=== PATIENT | female | born 1950 | race African-American/Black ===

== ENCOUNTER 2019-09-26 10:58 | Observation (INO) ==
[2019-09-26] MEDS ORDERED: ONDANSETRON 4 MG/2 ML VIAL IV STA (12:04)
[2019-09-26] MEDS ORDERED: AZITHROMYCIN INJ 500 MG in SODIUM CHLORIDE 0.9% 250 ML IV STA (12:16)
[2019-09-26] MEDS ORDERED: methylPREDNISolone SOD SUC 125 MG/2 ML VIAL IV STA (12:16)
[2019-09-26 12:37] LABS: Basophils % 0.1 % (0.0-0.8); Eosinophils % 0.4 % (0.00-10.9); Hematocrit 40.7 VOL% (35.7-47.0); Hemoglobin 12.9 GM/DL (12.0-16.0); Immature Granulocytes % 0.2 %; Immature Granulocytes Absolute 0.02 #; Lymphocytes # 1.8 10*3/uL (1.4-4.0); Lymphocytes % 19.3 % (21.3-54.2); Mean Corpuscular HGB Conc 31.7 GM/DL (32-36); Mean Corpuscular Volume 98.3 FL (87-102); Mean Platelet Volume 9.7 FL (9.6-12.0); Monocytes % 12.7 % (1.7-12.7); Neutrophils % 67.3 % (38.7-73.9); Platelet Count 240 T/CUMM (130-400); Red Blood Count 4.14 MC/CUMM (3.8-5.5); Red Cell Distribution Width 15.9 % (9.3-17.3); White Blood Count 9.1 T/CUMM (4-12)
[2019-09-26 12:47] LABS: Apearance,Urine Slightly Hazy (Clear); Bacteria,Urine Occasional /HPF (Few); Blood, Urine Negative (Negative); Glucose,Urine (UA) Negative (Negative); Hyaline Casts,Urine 39 /LPF (0-3); Ketones,Urine Negative (Negative); Mucus,Urine Occasional /LPF (Occasional); Nitrite,Urine Negative (Negative); Protein,Urine Negative; RBC,Urine 3 /HPF (0-4); Squamous Epithelial Cell,Urine Moderate /HPF (0-10); Urine Color Amber (Yellow); Urine Specific Gravity 1.028 (1.001-1.035); Urine Urobilinogen < 2.0 EU/DL (0.2-1.0); WBC,Urine 1 /HPF (0-6)
[2019-09-26 12:51] LABS: Bilirubin,Urine Small mg/dL (Negative)
[2019-09-26 13:12] LABS: Alanine Aminotransferase 14 U/L (13-56); Albumin 3.3 G/DL (3.4-5.0); Alkaline Phosphatase 143 U/L (45-117); Amylase 45 U/L (25-115); Aspartate Amino Transferase 17 U/L (0-37); Bilirubin,Total < 0.39 MG/DL (0.2-1.0); Blood Urea Nitrogen 14 MG/DL (7-18); Calcium 8.6 MG/DL (8.5-10.1); Estimated Glom Filtration Rate 78 ML/MIN; Ferritin 20.7 ng/ml (8-252); Glucose 108 MG/DL (74-106); Osmolality,Calculated 265.5 MOS/KG (273-304)
[2019-09-26] MEDS: TERBUTALINE 1 MG/1 ML VIAL SUBCUT SCH ×2 (14:15→17:22)
[2019-09-26] MEDS ORDERED: ALBUTEROL NEB SOLN 5 MG/ML 20 ML/BOTTLE CONT NEB STA (14:25)
[2019-09-26 15:11] LABS: ABG Base Excess 4.5 MMOL/L (-2.5-2.5); ABG HCO3 28.4 MMOL/L (20-26); ABG Oxygen Saturation 98.4 % (95-100); ABG PCO2 62.8 MM HG (35-48); ABG PH 7.323 (7.35-7.45); ABG TCO2 29.1 MMOL/L (23-27); Allen Test Positive
[2019-09-26] MEDS ORDERED: LEVOFLOXACIN INJ 750 MG in PREMIX 1 EACH IV STA (15:22)
[2019-09-26] MEDS ORDERED: FUROSEMIDE 40 MG/4 ML VIAL IV STA (15:22)
[2019-09-26 15:52] LABS: Troponin I < 0.015 NG/ML (0.00-0.045)
[2019-09-26] MEDS ORDERED: GLUCAGON 1 MG VIAL IM PRN ×2 (15:57)
[2019-09-26] MEDS ORDERED: DEXTROSE 50% 25 GM/50 ML VIAL IV PRN ×2 (15:57)
[2019-09-26] MEDS ORDERED: ONDANSETRON 4 MG/2 ML VIAL IV PRN (15:57)
[2019-09-26] MEDS ORDERED: ENOXAPARIN 40 MG/0.4 ML SYRINGE SUBCUT SCH (16:00)
[2019-09-26] MEDS ORDERED: NITROGLYCERIN SL 0.4 MG TABLET SL PRN (16:08)
[2019-09-26] MEDS ORDERED: ONDANSETRON 4 MG TABLET PO PRN (16:08)
[2019-09-26] MEDS ORDERED: COLCHICINE 0.6 MG CAPSULE PO PRN (16:08)
[2019-09-26] MEDS ORDERED: ENOXAPARIN 40 MG/0.4 ML SYRINGE ONE (17:19)
[2019-09-26] MEDS: INSULIN LISPRO 100 UNIT/ML SUBCUT SCH ×2 (18:54→21:25)
[2019-09-26] MEDS: THEOPHYLLINE ER 300 MG TABLET PO SCH (18:54)
[2019-09-26] MEDS: ALBUTEROL/IPRATROPIUM 3 ML NEB RESP TX SCH (19:58)
[2019-09-26] MEDS: BUDESONIDE 0.5 MG/2 ML NEB RESP TX SCH (19:58)
[2019-09-26] MEDS ORDERED: SIMVASTATIN 10 MG TABLET PO SCH (21:00)
[2019-09-26] MEDS: LABETALOL 200 MG TABLET PO SCH (21:21)
[2019-09-26] MEDS: BUDESONIDE/FORMOTEROL 80-4.5 INHALER 6.9 GM INH SCH (21:21)
[2019-09-27] MEDS: ALBUTEROL/IPRATROPIUM 3 ML NEB RESP TX SCH ×2 (00:56→07:20)
[2019-09-27 04:06] LABS: ABG Base Excess 6.4 MMOL/L (-2.5-2.5); ABG HCO3 30.2 MMOL/L (20-26); ABG PCO2 55.1 MM HG (35-48); ABG PH 7.386 (7.35-7.45); ABG PO2 86.1 MM HG (80-95); ABG TCO2 29.4 MMOL/L (23-27); Allen Test Positive
[2019-09-27] MEDS: THEOPHYLLINE ER 300 MG TABLET PO SCH (04:53)
[2019-09-27 06:07] LABS: Basophils % 0.1 % (0.0-0.8); Eosinophils % 0.2 % (0.00-10.9); Hematocrit 38.4 VOL% (35.7-47.0); Hemoglobin 12.5 GM/DL (12.0-16.0); Immature Granulocytes % 0.3 %; Immature Granulocytes Absolute 0.03 #; Lymphocytes # 2.7 10*3/uL (1.4-4.0); Lymphocytes % 28.9 % (21.3-54.2); Mean Corpuscular HGB Conc 32.6 GM/DL (32-36); Mean Corpuscular Volume 96.7 FL (87-102); Monocytes % 11.2 % (1.7-12.7); Neutrophils % 59.3 % (38.7-73.9); Platelet Count 219 T/CUMM (130-400); Red Blood Count 3.97 MC/CUMM (3.8-5.5); Red Cell Distribution Width 15.7 % (9.3-17.3); White Blood Count 9.2 T/CUMM (4-12)
[2019-09-27 06:28] LABS: Calcium 8.5 MG/DL (8.5-10.1); Osmolality,Calculated 263.5 MOS/KG (273-304)
[2019-09-27] MEDS: BUDESONIDE 0.5 MG/2 ML NEB RESP TX SCH (07:20)
[2019-09-27 07:49] VITALS: BP 124/74
[2019-09-27] MEDS ORDERED: FUROSEMIDE 40 MG/4 ML VIAL IV SCH (08:00)
[2019-09-27] MEDS ORDERED: PANTOPRAZOLE 40 MG TABLET PO SCH (09:00)
[2019-09-27] MEDS ORDERED: POTASSIUM CHLORIDE 20 MEQ TABLET PO SCH (09:00)
[2019-09-27] MEDS ORDERED: NF- (Umeclidinium [Incruse Ellipta] 1 inh) INH SCH (09:00)
[2019-09-27] MEDS ORDERED: DIGOXIN 0.125 MG TABLET PO SCH (09:00)
[2019-09-27] MEDS ORDERED: APIXABAN 5 MG TABLET PO SCH (09:00)
[2019-09-27] MEDS ORDERED: LEVOTHYROXINE 50 MCG TABLET PO SCH (09:00)
[2019-09-27] MEDS: INSULIN LISPRO 100 UNIT/ML SUBCUT SCH (09:31)
[2019-09-27] MEDS: LABETALOL 200 MG TABLET PO SCH (09:32)
[2019-09-27] MEDS: BUDESONIDE/FORMOTEROL 80-4.5 INHALER 6.9 GM INH SCH (09:32)
== END 2019-09-27 11:44 | disposition home health service (06) ==
LOC: N.ED 10:58 → N.EDINP 10:58 → N.4E 16:55
PROVIDERS: ADMIT Internal Medicine Geriatric Medicine; ATTEND Internal Medicine Geriatric Medicine

== ENCOUNTER 2022-04-17 02:55 | Inpatient (IN) ==
[2022-04-17] MEDS ORDERED: ASPIRIN 325 MG TABLET PO STA (03:43)
[2022-04-17] MEDS ORDERED: ONDANSETRON 4 MG/2 ML VIAL IV STA (03:43)
[2022-04-17] MEDS ORDERED: NITROGLYCERIN 2% OINT 1 INCH/GM PACK TOP STA (03:43)
[2022-04-17] MEDS ORDERED: FUROSEMIDE 100 MG/10 ML VIAL IV STA (03:43)
[2022-04-17] MEDS ORDERED: MORPHINE 2 MG/1 ML SYRINGE IV STA (03:43)
[2022-04-17] MEDS ORDERED: methylPREDNISolone SOD SUC 125 MG/2 ML VIAL IV STA (03:43)
[2022-04-17] MEDS ORDERED: ALBUTEROL NEB SOLN 5 MG/ML 20 ML/BOTTLE CONT NEB SCH (04:00)
[2022-04-17 04:13] LABS: Eosinophils # 0.1 10*3/uL (0.0-0.87); Eosinophils % 1.5 % (0.00-10.9); Hematocrit 41.4 VOL% (35.7-47.0); Hemoglobin 13.2 GM/DL (12.0-16.0); Immature Granulocytes % 0.2 %; Immature Granulocytes Absolute 0.01 #; Lymphocytes # 2.3 10*3/uL (1.4-4.0); Lymphocytes % 49.9 % (21.3-54.2); Mean Corpuscular HGB Conc 31.9 GM/DL (32-36); Mean Corpuscular Volume 99.5 FL (87-102); Mean Platelet Volume 10.2 FL (9.6-12.0); Monocytes # 0.6 10*3/uL (0.11-0.8); Monocytes % 12.8 % (1.7-12.7); Neutrophils % 35.6 % (38.7-73.9); Platelet Count 106 T/CUMM (130-400); Red Blood Count 4.16 MC/CUMM (3.8-5.5); Red Cell Distribution Width 15.1 % (9.3-17.3); White Blood Count 4.7 T/CUMM (4-12)
[2022-04-17 04:28] LABS: Alanine Aminotransferase 16 U/L (13-56); Albumin 3.2 G/DL (3.4-5.0); Alkaline Phosphatase 120 U/L (45-117); Aspartate Amino Transferase 18 U/L (0-37); Bilirubin,Total < 0.39 MG/DL (0.20-1.00); Blood Urea Nitrogen 7 MG/DL (7-18); Calcium 8.6 MG/DL (8.5-10.1); Carbon Dioxide 29 MMOL/L (21-32); Chloride 108 MMOL/L (98-107); Glucose 96 MG/DL (74-106); Osmolality,Calculated 278.3 MOS/KG (273-304); Potassium 4.3 MMOL/L (3.5-5.1); Sodium 141 MMOL/L (136-145); Total Protein 7.1 G/DL (6.4-8.2)
[2022-04-17 04:32] LABS: Lymphocytes 50 % (20-55); Total Cells Counted 100
[2022-04-17] MEDS ORDERED: ALBUTEROL 2.5 MG/3 ML NEB RESP TX ONE (04:51)
[2022-04-17] MEDS ORDERED: ONDANSETRON 4 MG/2 ML VIAL IV PRN (05:08)
[2022-04-17] MEDS ORDERED: ACETAMINOPHEN 325 MG TABLET PO PRN (05:08)
[2022-04-17] MEDS ORDERED: MORPHINE 2 MG/1 ML SYRINGE IV PRN (05:08)
[2022-04-17] MEDS ORDERED: METHOCARBAMOL 750 MG TABLET PO PRN (05:13)
[2022-04-17] MEDS ORDERED: NAPROXEN 500 MG TABLET PO PRN (05:13)
[2022-04-17] MEDS ORDERED: DEXTROSE 10% 250 ML BAG IV PRN (05:15)
[2022-04-17] MEDS ORDERED: oxyCODONE IR 5 MG TABLET PO PRN (05:37)
[2022-04-17] MEDS: LEVOTHYROXINE 75 MCG TABLET PO SCH (06:17)
[2022-04-17] MEDS: INSULIN REGULAR 100 UNIT/ML SUBCUT SCH ×4 (07:25→21:07)
[2022-04-17] MEDS: ALBUTEROL/IPRATROPIUM 3 ML NEB RESP TX SCH ×4 (08:27→19:50)
[2022-04-17] MEDS ORDERED: amLODIPine 5 MG TABLET PO SCH (09:00)
[2022-04-17] MEDS: FUROSEMIDE 40 MG TABLET PO SCH (09:32)
[2022-04-17] MEDS: FOLIC ACID 1 MG TABLET PO SCH (09:32)
[2022-04-17] MEDS: GABAPENTIN 100 MG CAPSULE PO SCH ×2 (09:33→21:08)
[2022-04-17] MEDS: APIXABAN 2.5 MG TABLET PO SCH ×2 (09:34→21:07)
[2022-04-17] MEDS: DIGOXIN 0.125 MG TABLET PO SCH (09:34)
[2022-04-17] MEDS: POTASSIUM CHLORIDE 20 MEQ TABLET PO SCH ×2 (09:34→21:08)
[2022-04-17] MEDS: lisinopriL 20 MG TABLET PO SCH (09:35)
[2022-04-17] MEDS: LABETALOL 100 MG TABLET PO SCH ×2 (09:35→21:08)
[2022-04-17] MEDS: predniSONE 20 MG TABLET PO SCH (09:35)
[2022-04-17] MEDS: PANTOPRAZOLE 40 MG TABLET PO SCH (09:35)
[2022-04-17] MEDS: levETIRAcetam 500 MG TABLET PO SCH ×2 (09:36→21:08)
[2022-04-17 10:17] LABS: Risk Ratio 2.28; VLDL Cholesterol 18.8 MG/DL
[2022-04-17] MEDS ORDERED: POTASSIUM CHLORIDE RIDER 10 MEQ/100 ML PREMIX IV PRN (12:05)
[2022-04-17] MEDS ORDERED: MAGNESIUM SULF RIDER 2 GM/50 ML PREMIX IV PRN (12:05)
[2022-04-17] MEDS: PHENYTOIN ER 100 MG CAPSULE PO SCH ×3 (14:27→21:07)
[2022-04-17] MEDS: MORPHINE ER 30 MG TABLET PO SCH ×2 (14:27→21:08)
[2022-04-17] MEDS: ISOSORBIDE MONONITRATE 30 MG TABLET PO SCH (14:28)
[2022-04-17] MEDS: PHENobarbital 30 MG TABLET PO SCH ×3 (14:31→21:08)
[2022-04-17] MEDS ORDERED: SIMVASTATIN 10 MG TABLET PO SCH (21:00)
[2022-04-17] MEDS: AMITRIPTYLINE 75 MG TABLET PO SCH (21:07)
[2022-04-17] MEDS: SIMVASTATIN 20 MG TABLET PO SCH (21:08)
[2022-04-17] MEDS ORDERED: LORazepam 2 MG/1 ML VIAL ONE (21:34)
[2022-04-17] MEDS ORDERED: LORazepam 2 MG/1 ML VIAL IV STA (21:45)
[2022-04-18] MEDS: ALBUTEROL/IPRATROPIUM 3 ML NEB RESP TX SCH ×6 (00:30→20:20)
[2022-04-18 05:52] LABS: Calcium 8.5 MG/DL (8.5-10.1); Osmolality,Calculated 272.8 MOS/KG (273-304); Potassium 4.4 MMOL/L (3.5-5.1)
[2022-04-18 06:20] LABS: Basophils % 0.2 % (0.0-0.8); Eosinophils % 0.5 % (0.00-10.9); Hematocrit 36.9 VOL% (35.7-47.0); Hemoglobin 11.7 GM/DL (12.0-16.0); Immature Granulocytes % 0.3 %; Immature Granulocytes Absolute 0.02 #; Lymphocytes # 2.6 10*3/uL (1.4-4.0); Lymphocytes % 41.9 % (21.3-54.2); Mean Corpuscular HGB Conc 31.7 GM/DL (32-36); Mean Corpuscular Volume 99.7 FL (87-102); Mean Platelet Volume 9.8 FL (9.6-12.0); Monocytes # 1.1 10*3/uL (0.11-0.8); Monocytes % 16.8 % (1.7-12.7); Neutrophils % 40.3 % (38.7-73.9); Platelet Count 176 T/CUMM (130-400); Red Cell Distribution Width 14.9 % (9.3-17.3); White Blood Count 6.3 T/CUMM (4-12)
[2022-04-18] MEDS: LEVOTHYROXINE 75 MCG TABLET PO SCH (06:25)
[2022-04-18 06:42] LABS: Eosinophils 1 % (0-10); Hypochromia Slight; Lymphocytes 45 % (20-55); Total Cells Counted 100
[2022-04-18 06:43] LABS: Microcytosis Slight
[2022-04-18] MEDS: POTASSIUM CHLORIDE 20 MEQ TABLET PO SCH ×2 (10:41→21:00)
[2022-04-18] MEDS: FOLIC ACID 1 MG TABLET PO SCH (10:41)
[2022-04-18] MEDS: MORPHINE ER 30 MG TABLET PO SCH ×2 (10:42→21:01)
[2022-04-18] MEDS: predniSONE 20 MG TABLET PO SCH (10:42)
[2022-04-18] MEDS: INSULIN REGULAR 100 UNIT/ML SUBCUT SCH ×3 (10:44→17:49)
[2022-04-18] MEDS: ISOSORBIDE MONONITRATE 30 MG TABLET PO SCH (11:03)
[2022-04-18] MEDS: GABAPENTIN 100 MG CAPSULE PO SCH ×2 (11:03→21:01)
[2022-04-18] MEDS: PANTOPRAZOLE 40 MG TABLET PO SCH (11:03)
[2022-04-18] MEDS: PHENobarbital 30 MG TABLET PO SCH ×4 (11:04→21:01)
[2022-04-18] MEDS: FUROSEMIDE 40 MG TABLET PO SCH (11:04)
[2022-04-18] MEDS: levETIRAcetam 500 MG TABLET PO SCH ×2 (11:04→21:00)
[2022-04-18] MEDS: ASPIRIN EC 81 MG TABLET PO SCH (11:05)
[2022-04-18] MEDS: PHENYTOIN ER 100 MG CAPSULE PO SCH ×4 (11:05→21:00)
[2022-04-18] MEDS: lisinopriL 20 MG TABLET PO SCH (11:05)
[2022-04-18] MEDS: DIGOXIN 0.125 MG TABLET PO SCH (11:05)
[2022-04-18] MEDS ORDERED: DIAZEPAM 5 MG TABLET PO ONE ×2 (12:05)
[2022-04-18] MEDS ORDERED: diphenhydrAMINE CAP 50 MG CAPSULE PO ONE (12:05)
[2022-04-18] MEDS ORDERED: diphenhydrAMINE CAP 25 MG CAPSULE PO ONE (12:05)
[2022-04-18] MEDS ORDERED: diphenhydrAMINE 50 MG/1 ML VIAL ONE (12:26)
[2022-04-18] MEDS ORDERED: methylPREDNISolone SOD SUC 125 MG/2 ML VIAL ONE (12:26)
[2022-04-18] MEDS ORDERED: fentaNYL 100 MCG/2 ML VIAL ONE (12:36)
[2022-04-18] MEDS ORDERED: MIDAZOLAM 2 MG/2 ML VIAL ONE (12:36)
[2022-04-18] MEDS ORDERED: DEXTROSE 50% 25 GM/50 ML VIAL IV PRN (13:07)
[2022-04-18] MEDS ORDERED: GLUCAGON 1 MG VIAL IM PRN (13:07)
[2022-04-18] MEDS ORDERED: SODIUM CHLORIDE 0.9% 1,000 ML IV SCH (13:30)
[2022-04-18] MEDS: LABETALOL 100 MG TABLET PO SCH ×2 (15:47→21:01)
[2022-04-18] MEDS: AMITRIPTYLINE 75 MG TABLET PO SCH (21:00)
[2022-04-18] MEDS: SIMVASTATIN 20 MG TABLET PO SCH (21:02)
[2022-04-19] MEDS: ALBUTEROL/IPRATROPIUM 3 ML NEB RESP TX SCH ×7 (00:21→22:15)
[2022-04-19] MEDS: INSULIN REGULAR 100 UNIT/ML SUBCUT SCH ×5 (00:42→21:02)
[2022-04-19] MEDS: LEVOTHYROXINE 75 MCG TABLET PO SCH (05:36)
[2022-04-19 05:48] LABS: Eosinophils % 0.2 % (0.00-10.9); Hematocrit 40.1 VOL% (35.7-47.0); Hemoglobin 12.7 GM/DL (12.0-16.0); Immature Granulocytes % 0.3 %; Immature Granulocytes Absolute 0.02 #; Lymphocytes # 2.4 10*3/uL (1.4-4.0); Lymphocytes % 37.7 % (21.3-54.2); Mean Corpuscular HGB Conc 31.7 GM/DL (32-36); Mean Platelet Volume 10.2 FL (9.6-12.0); Monocytes # 0.7 10*3/uL (0.11-0.8); Neutrophils % 50.8 % (38.7-73.9); Platelet Count 202 T/CUMM (130-400); Red Blood Count 3.97 MC/CUMM (3.8-5.5); Red Cell Distribution Width 14.9 % (9.3-17.3); White Blood Count 6.3 T/CUMM (4-12)
[2022-04-19 05:58] LABS: Calcium 8.8 MG/DL (8.5-10.1); Osmolality,Calculated 270.8 MOS/KG (273-304); Potassium 4.5 MMOL/L (3.5-5.1)
[2022-04-19] MEDS ORDERED: LORazepam 2 MG/1 ML VIAL IV ONE (07:23)
[2022-04-19] MEDS ORDERED: LORazepam 2 MG/1 ML VIAL ONE (07:24)
[2022-04-19] MEDS ORDERED: LORazepam 2 MG/1 ML VIAL IV STA (07:29)
[2022-04-19 07:43] LABS: Arterial Base Excess iSTAT 5 MMOL/L (-2.5-2.5); Arterial Bicarbonate iSTAT 32.9 MMOL/L (20-26); Arterial O2 Saturation iSTAT 96 % (95-100); Arterial PCO2 iSTAT 62 MM HG (35-48); Arterial PO2 iSTAT 94 MM HG (80-95); Arterial Total CO2 iSTAT 35 MMO/L (23-27); Arterial pH iSTAT 7.332 (7.35-7.45)
[2022-04-19 08:30] LABS: Phenytoin (Dilantin) 17.6 UG/ML (10-20)
[2022-04-19 08:57] LABS: Anisocytosis 1+; Band Neutrophils 1 % (0-10); Lymphocytes 35 % (20-55); Macrocytosis 1+; Platelet Estimate Normal; Total Cells Counted 100
[2022-04-19] MEDS: PHENYTOIN ER 100 MG CAPSULE PO SCH ×4 (10:32→21:02)
[2022-04-19] MEDS: FOLIC ACID 1 MG TABLET PO SCH (10:32)
[2022-04-19] MEDS: ASPIRIN EC 81 MG TABLET PO SCH (10:32)
[2022-04-19] MEDS: ISOSORBIDE MONONITRATE 30 MG TABLET PO SCH (10:32)
[2022-04-19] MEDS: FUROSEMIDE 40 MG TABLET PO SCH (10:33)
[2022-04-19] MEDS: predniSONE 20 MG TABLET PO SCH (10:33)
[2022-04-19] MEDS: lisinopriL 20 MG TABLET PO SCH (10:33)
[2022-04-19] MEDS: DIGOXIN 0.125 MG TABLET PO SCH (10:33)
[2022-04-19] MEDS: MORPHINE ER 30 MG TABLET PO SCH ×2 (10:33→21:03)
[2022-04-19] MEDS: POTASSIUM CHLORIDE 20 MEQ TABLET PO SCH ×2 (10:33→21:02)
[2022-04-19] MEDS: GABAPENTIN 100 MG CAPSULE PO SCH ×2 (10:33→21:03)
[2022-04-19] MEDS: LABETALOL 100 MG TABLET PO SCH ×2 (10:33→21:03)
[2022-04-19] MEDS: levETIRAcetam 500 MG TABLET PO SCH (10:33)
[2022-04-19] MEDS: PHENobarbital 30 MG TABLET PO SCH ×4 (10:33→21:02)
[2022-04-19 10:35] LABS: Mucus,Urine Occasional /LPF (Occasional); RBC,Urine <1 /HPF (0-4); Squamous Epithelial Cell,Urine Occasional /HPF (0-10)
[2022-04-19 10:36] LABS: Bilirubin,Urine Negative (Negative); Blood, Urine Negative (Negative); Glucose,Urine (UA) Negative (Negative); Ketones,Urine Negative (Negative); Nitrite,Urine Negative (Negative); Protein,Urine Negative (Negative); Urine Appearance Clear (Clear); Urine Color Yellow (Yellow); Urine Specific Gravity < 1.005 (1.001-1.035); Urine Urobilinogen 0.2 eU/dL (<2.0); Urine pH 5.5 (4.5-8.0)
[2022-04-19 11:08] LABS: Arterial Base Excess iSTAT 7 MMOL/L (-2.5-2.5); Arterial Bicarbonate iSTAT 35.5 MMOL/L (20-26); Arterial O2 Saturation iSTAT 99 % (95-100); Arterial PCO2 iSTAT 68 MM HG (35-48); Arterial PO2 iSTAT 180 MM HG (80-95); Arterial Total CO2 iSTAT 38 MMO/L (23-27); Arterial pH iSTAT 7.323 (7.35-7.45)
[2022-04-19 12:34] LABS: Arterial Base Excess iSTAT 8 MMOL/L (-2.5-2.5); Arterial Bicarbonate iSTAT 35.5 MMOL/L (20-26); Arterial O2 Saturation iSTAT 97 % (95-100); Arterial PCO2 iSTAT 64 MM HG (35-48); Arterial PO2 iSTAT 97 MM HG (80-95); Arterial Total CO2 iSTAT 37 MMO/L (23-27); Arterial pH iSTAT 7.351 (7.35-7.45)
[2022-04-19] MEDS: SIMVASTATIN 20 MG TABLET PO SCH (21:03)
[2022-04-20] MEDS: ALBUTEROL/IPRATROPIUM 3 ML NEB RESP TX SCH ×5 (02:40→18:59)
[2022-04-20 03:52] LABS: Arterial Base Excess iSTAT 7 MMOL/L (-2.5-2.5); Arterial Bicarbonate iSTAT 35.3 MMOL/L (20-26); Arterial O2 Saturation iSTAT 96 % (95-100); Arterial PCO2 iSTAT 70 MM HG (35-48); Arterial PO2 iSTAT 91 MM HG (80-95); Arterial Total CO2 iSTAT 37 MMO/L (23-27); Arterial pH iSTAT 7.309 (7.35-7.45)
[2022-04-20] MEDS: LEVOTHYROXINE 75 MCG TABLET PO SCH (06:12)
[2022-04-20 06:42] LABS: Basophils % 0.2 % (0.0-0.8); Eosinophils # 0.1 10*3/uL (0.0-0.87); Eosinophils % 0.8 % (0.00-10.9); Hematocrit 43.5 VOL% (35.7-47.0); Hemoglobin 13.5 GM/DL (12.0-16.0); Immature Granulocytes % 0.2 %; Immature Granulocytes Absolute 0.01 #; Lymphocytes # 1.7 10*3/uL (1.4-4.0); Lymphocytes % 27.2 % (21.3-54.2); Mean Corpuscular Volume 102.6 FL (87-102); Mean Platelet Volume 11.7 FL (9.6-12.0); Monocytes # 0.8 10*3/uL (0.11-0.8); Monocytes % 12.2 % (1.7-12.7); Neutrophils % 59.4 % (38.7-73.9); Red Blood Count 4.24 MC/CUMM (3.8-5.5); Red Cell Distribution Width 14.8 % (9.3-17.3); White Blood Count 6.2 T/CUMM (4-12)
[2022-04-20 06:55] LABS: Platelet Count 112 T/CUMM (130-400)
[2022-04-20 07:00] LABS: Alanine Aminotransferase 51 U/L (13-56); Albumin 3.1 G/DL (3.4-5.0); Alkaline Phosphatase 155 U/L (45-117); Aspartate Amino Transferase 232 U/L (0-37); Bilirubin,Total < 0.39 MG/DL (0.20-1.00); Blood Urea Nitrogen 6 MG/DL (7-18); Calcium 8.8 MG/DL (8.5-10.1); Carbon Dioxide 34 MMOL/L (21-32); Chloride 104 MMOL/L (98-107); Glucose 103 MG/DL (74-106); Osmolality,Calculated 278.3 MOS/KG (273-304); Potassium 4.4 MMOL/L (3.5-5.1); Sodium 141 MMOL/L (136-145); Total Protein 7.1 G/DL (6.4-8.2)
[2022-04-20 08:43] LABS: Macrocytosis 1+; Platelet Estimate Adequate; Target Cells Few
[2022-04-20] MEDS: APIXABAN 2.5 MG TABLET PO SCH ×4 (09:24→09:55)
[2022-04-20] MEDS: INSULIN REGULAR 100 UNIT/ML SUBCUT SCH ×4 (09:25→21:40)
[2022-04-20] MEDS: lisinopriL 20 MG TABLET PO SCH (09:51)
[2022-04-20] MEDS: FUROSEMIDE 40 MG TABLET PO SCH (09:51)
[2022-04-20] MEDS: LABETALOL 100 MG TABLET PO SCH ×2 (09:51→21:39)
[2022-04-20] MEDS: DIGOXIN 0.125 MG TABLET PO SCH (09:51)
[2022-04-20] MEDS: PHENobarbital 30 MG TABLET PO SCH ×4 (09:52→21:39)
[2022-04-20] MEDS: predniSONE 20 MG TABLET PO SCH (09:52)
[2022-04-20] MEDS: GABAPENTIN 100 MG CAPSULE PO SCH ×2 (09:52→21:39)
[2022-04-20] MEDS: FOLIC ACID 1 MG TABLET PO SCH (09:53)
[2022-04-20] MEDS: ASPIRIN EC 81 MG TABLET PO SCH (09:53)
[2022-04-20] MEDS: MORPHINE ER 30 MG TABLET PO SCH ×2 (09:53→21:39)
[2022-04-20] MEDS: PHENYTOIN ER 100 MG CAPSULE PO SCH ×4 (09:53→21:39)
[2022-04-20] MEDS: ISOSORBIDE MONONITRATE 30 MG TABLET PO SCH (09:53)
[2022-04-20] MEDS: POTASSIUM CHLORIDE 20 MEQ TABLET PO SCH ×2 (09:53→21:39)
[2022-04-20] MEDS: SIMVASTATIN 20 MG TABLET PO SCH (21:38)
[2022-04-21] MEDS: ALBUTEROL/IPRATROPIUM 3 ML NEB RESP TX SCH ×3 (00:05→11:31)
[2022-04-21] MEDS ORDERED: ALBUTEROL/IPRATROPIUM 3 ML NEB RESP TX ONE (00:08)
[2022-04-21 05:04] LABS: Basophils % 0.3 % (0.0-0.8); Eosinophils % 0.5 % (0.00-10.9); Hematocrit 43.9 VOL% (35.7-47.0); Hemoglobin 13.7 GM/DL (12.0-16.0); Immature Granulocytes % 0.7 %; Immature Granulocytes Absolute 0.04 #; Lymphocytes # 1.9 10*3/uL (1.4-4.0); Lymphocytes % 33.1 % (21.3-54.2); Mean Corpuscular HGB Conc 31.2 GM/DL (32-36); Mean Corpuscular Volume 103.5 FL (87-102); Mean Platelet Volume 10.5 FL (9.6-12.0); Monocytes # 0.8 10*3/uL (0.11-0.8); Monocytes % 13.8 % (1.7-12.7); Neutrophils % 51.6 % (38.7-73.9); Platelet Count 138 T/CUMM (130-400); Red Blood Count 4.24 MC/CUMM (3.8-5.5); Red Cell Distribution Width 14.6 % (9.3-17.3); White Blood Count 5.9 T/CUMM (4-12)
[2022-04-21 05:25] LABS: Alanine Aminotransferase 36 U/L (13-56); Albumin 3.1 G/DL (3.4-5.0); Alkaline Phosphatase 135 U/L (45-117); Aspartate Amino Transferase 51 U/L (0-37); Bilirubin,Total < 0.39 MG/DL (0.20-1.00); Blood Urea Nitrogen 7 MG/DL (7-18); Calcium 8.5 MG/DL (8.5-10.1); Carbon Dioxide 31 MMOL/L (21-32); Chloride 103 MMOL/L (98-107); Glucose 103 MG/DL (74-106); Osmolality,Calculated 270.8 MOS/KG (273-304); Potassium 3.9 MMOL/L (3.5-5.1); Sodium 137 MMOL/L (136-145); Total Protein 7.4 G/DL (6.4-8.2)
[2022-04-21] MEDS: LEVOTHYROXINE 75 MCG TABLET PO SCH (05:37)
[2022-04-21] MEDS: FUROSEMIDE 40 MG TABLET PO SCH (10:23)
[2022-04-21] MEDS: ASPIRIN EC 81 MG TABLET PO SCH (10:24)
[2022-04-21] MEDS: lisinopriL 20 MG TABLET PO SCH (10:24)
[2022-04-21] MEDS: PHENobarbital 30 MG TABLET PO SCH ×2 (10:24→13:03)
[2022-04-21] MEDS: PHENYTOIN ER 100 MG CAPSULE PO SCH ×2 (10:24→13:02)
[2022-04-21] MEDS: MORPHINE ER 30 MG TABLET PO SCH (10:24)
[2022-04-21] MEDS: DIGOXIN 0.125 MG TABLET PO SCH (10:25)
[2022-04-21] MEDS: GABAPENTIN 100 MG CAPSULE PO SCH (10:26)
[2022-04-21] MEDS: FOLIC ACID 1 MG TABLET PO SCH (10:26)
[2022-04-21] MEDS: predniSONE 20 MG TABLET PO SCH (10:26)
[2022-04-21] MEDS: POTASSIUM CHLORIDE 20 MEQ TABLET PO SCH (10:27)
[2022-04-21] MEDS: LABETALOL 100 MG TABLET PO SCH (10:27)
[2022-04-21] MEDS: ISOSORBIDE MONONITRATE 30 MG TABLET PO SCH (10:27)
[2022-04-21] MEDS: INSULIN REGULAR 100 UNIT/ML SUBCUT SCH ×2 (11:23→11:56)
[2022-04-21 11:40] VITALS: BP 113/74
[2022-04-21] MEDS: APIXABAN 2.5 MG TABLET PO SCH (11:42)
[2022-04-21] MEDS ORDERED: APIXABAN 2.5 MG TABLET PO SCH (21:00)
== END 2022-04-21 14:24 | disposition home health service (06) | DRG 100 ==
LOC: SUATTDRO → N.ED 02:55 → N.EDINP 02:55 → SUATTDRO 05:08 → N.2E 10:18 → N.ICU 04-19 08:13 → N.TELEN 04-20 20:04
PROVIDERS: ADMIT Internal Medicine; ATTEND Internal Medicine Geriatric Medicine
PROC: CLCCHCL (ICD-10-PCS; 2022-04-18 13:45)

== ENCOUNTER 2022-06-02 10:40 | Observation (INO) ==
[2022-06-02] MEDS ORDERED: ALUM/MAG/SIMETH/LIDO VISC 1:1 30 ML BOTTLE PO STA (11:56)
[2022-06-02 11:59] LABS: Eosinophils % 0.3 % (0.00-10.9); Hematocrit 44.5 VOL% (35.7-47.0); Hemoglobin 14.1 GM/DL (12.0-16.0); Immature Granulocytes % 0.2 %; Immature Granulocytes Absolute 0.01 #; Lymphocytes # 1.6 10*3/uL (1.4-4.0); Lymphocytes % 24.5 % (21.3-54.2); Mean Corpuscular HGB Conc 31.7 GM/DL (32-36); Mean Corpuscular Volume 100.7 FL (87-102); Mean Platelet Volume 10.9 FL (9.6-12.0); Monocytes # 0.8 10*3/uL (0.11-0.8); Platelet Count 203 T/CUMM (130-400); Red Blood Count 4.42 MC/CUMM (3.8-5.5); Red Cell Distribution Width 15.5 % (9.3-17.3); White Blood Count 6.48 T/CUMM (4-12)
[2022-06-02 15:46] LABS: Alanine Aminotransferase 21 U/L (13-56); Albumin 3.2 G/DL (3.4-5.0); Alkaline Phosphatase 148 U/L (45-117); Aspartate Amino Transferase 40 U/L (0-37); Bilirubin,Total < 0.39 MG/DL (0.20-1.00); Blood Urea Nitrogen 7 MG/DL (7-18); Carbon Dioxide 26 MMOL/L (21-32); Chloride 106 MMOL/L (98-107); Glucose 93 MG/DL (74-106); Potassium 4.7 MMOL/L (3.5-5.1); Sodium 136 MMOL/L (136-145); Total Protein 7.8 G/DL (6.4-8.2)
[2022-06-02] MEDS ORDERED: ACETAMINOPHEN 325 MG TABLET PO PRN (16:36)
[2022-06-02] MEDS ORDERED: GLUCAGON 1 MG VIAL IM PRN (16:40)
[2022-06-02] MEDS ORDERED: DEXTROSE 10% 250 ML BAG IV PRN (16:44)
[2022-06-02] MEDS: ALBUTEROL/IPRATROPIUM 3 ML NEB RESP TX SCH (19:25)
[2022-06-02] MEDS: FUROSEMIDE 40 MG/4 ML VIAL IV SCH (20:40)
[2022-06-02] MEDS ORDERED: AMITRIPTYLINE 75 MG TABLET PO SCH (21:00)
[2022-06-02] MEDS ORDERED: SIMVASTATIN 40 MG TABLET PO SCH (21:00)
[2022-06-02] MEDS: levETIRAcetam 500 MG TABLET PO SCH (22:58)
[2022-06-02] MEDS: APIXABAN 2.5 MG TABLET PO SCH (22:59)
[2022-06-02] MEDS: GABAPENTIN 100 MG CAPSULE PO SCH (22:59)
[2022-06-02] MEDS: INSULIN LISPRO 100 UNIT/ML SUBCUT SCH (23:07)
[2022-06-03] MEDS: PHENobarbital 30 MG TABLET PO SCH ×2 (00:09→11:30)
[2022-06-03] MEDS: ALBUTEROL/IPRATROPIUM 3 ML NEB RESP TX SCH ×3 (01:15→08:18)
[2022-06-03 04:38] LABS: Eosinophils % 0.5 % (0.00-10.9); Hematocrit 38.8 VOL% (35.7-47.0); Hemoglobin 12.1 GM/DL (12.0-16.0); Immature Granulocytes % 0.2 %; Immature Granulocytes Absolute 0.01 #; Lymphocytes # 1.7 10*3/uL (1.4-4.0); Lymphocytes % 30.4 % (21.3-54.2); Mean Corpuscular HGB Conc 31.2 GM/DL (32-36); Mean Corpuscular Volume 101.6 FL (87-102); Mean Platelet Volume 9.9 FL (9.6-12.0); Monocytes # 0.8 10*3/uL (0.11-0.8); Monocytes % 14.7 % (1.7-12.7); Neutrophils % 54.2 % (38.7-73.9); Platelet Count 174 T/CUMM (130-400); Red Blood Count 3.82 MC/CUMM (3.8-5.5); Red Cell Distribution Width 15.2 % (9.3-17.3); White Blood Count 5.63 T/CUMM (4-12)
[2022-06-03 04:59] LABS: Calcium 8.2 MG/DL (8.5-10.1); Osmolality,Calculated 281.1 MOS/KG (273-304); Potassium 3.8 MMOL/L (3.5-5.1)
[2022-06-03] MEDS ORDERED: LEVOTHYROXINE 75 MCG TABLET PO SCH (06:00)
[2022-06-03] MEDS ORDERED: PANTOPRAZOLE 40 MG TABLET PO SCH (06:00)
[2022-06-03 06:56] VITALS: BP 125/72
[2022-06-03] MEDS: INSULIN LISPRO 100 UNIT/ML SUBCUT SCH (08:27)
[2022-06-03] MEDS: FUROSEMIDE 40 MG/4 ML VIAL IV SCH (08:32)
[2022-06-03] MEDS ORDERED: FOLIC ACID 1 MG TABLET PO SCH (09:00)
[2022-06-03] MEDS ORDERED: FUROSEMIDE 40 MG TABLET PO SCH (09:00)
[2022-06-03] MEDS ORDERED: PHENYTOIN ER 100 MG CAPSULE PO SCH (09:00)
[2022-06-03] MEDS ORDERED: ISOSORBIDE MONONITRATE 30 MG TABLET PO SCH (09:00)
[2022-06-03] MEDS: levETIRAcetam 500 MG TABLET PO SCH (09:47)
[2022-06-03] MEDS: GABAPENTIN 100 MG CAPSULE PO SCH (09:48)
[2022-06-03] MEDS: APIXABAN 2.5 MG TABLET PO SCH (09:48)
[2022-06-03] MEDS ORDERED: methylPREDNISolone SOD SUC 125 MG/2 ML VIAL IV SCH (10:30)
[2022-06-03] MEDS ORDERED: methylPREDNISolone SOD SUC 40 MG/1 ML VIAL IV SCH (11:00)
[2022-06-03 11:14] LABS: Arterial Base Excess iSTAT 8 MMOL/L (-2.5-2.5); Arterial O2 Saturation iSTAT 91 % (95-100); Arterial PCO2 iSTAT 59 MM HG (35-48); Arterial PO2 iSTAT 64 MM HG (80-95); Arterial Total CO2 iSTAT 37 MMO/L (23-27); Arterial pH iSTAT 7.379 (7.35-7.45)
[2022-06-03] MEDS ORDERED: DIGOXIN 0.125 MG TABLET PO SCH (13:00)
== END 2022-06-03 13:20 | disposition home health service (06) ==
LOC: N.EDINP 10:40 → N.ED 10:40 → N.EDINP 06-03 13:24
PROVIDERS: ADMIT Internal Medicine; ATTEND Internal Medicine